=== PATIENT | female | born 2000 | race Caucasian/White ===

== ENCOUNTER 2022-04-19 03:02 | Emergency (ER) | payer OTHER ==
[2022-04-19 03:20] VITALS: BP 103/58; PULSE 80; RESP 18; TEMP 98.3; BMI 24.5
[2022-04-19] MEDS ORDERED: SODIUM CHLORIDE 0.9% 500 ML INFUS.BAG IV ONE (03:42)
[2022-04-19] MEDS ORDERED: METOCLOPRAMIDE HCL INJECTION 10 MG/2 ML VIAL IVPUSH ONE (03:42)
[2022-04-19] MEDS ORDERED: ACETAMINOPHEN 1000 MG/100 ML BAG IVPB ONE (03:42)
[2022-04-19] MEDS ORDERED: KETOROLAC TROMETHAMINE 15 MG/ML VIAL IVPUSH ONE (03:42)
[2022-04-19] MEDS ORDERED: KETOROLAC TROMETHAMINE 15 MG/ML VIAL ONE (03:55)
[2022-04-19] MEDS ORDERED: ACETAMINOPHEN INJECTION 100 ML IVPB ONE (03:55)
[2022-04-19] MEDS ORDERED: METOCLOPRAMIDE HCL INJECTION 10 MG/2 ML VIAL ONE (03:55)
[2022-04-19 03:59] LABS: BASO % 0.8 % (0-2.0); EOS % 1.9 % (0-4.5); HEMATOCRIT 38.9 % (32.4-45.2); HEMOGLOBIN 12.8 GM/dL (10.7-15.3); LYMPH % 29.4 % (8-40); MEAN CELL VOLUME 87.9 fl (80-96); MEAN PLT VOLUME 7.6 fl (7.5-11.1); MONO % 7.8 % (3.8-10.2); NEUT % 60.1 % (42.8-82.8); PLATELET COUNT 346 10^3/uL (134-434); RBC 4.43 M/mm3 (3.60-5.2); RDW 14.3 % (11.6-15.6); WHITE BLOOD COUNT 9.9 K/mm3 (4.0-10.0)
[2022-04-19 04:25] LABS: CHLORIDE 102 mmol/L (98-107); SODIUM 124 mmol/L (136-145)
[2022-04-19 04:27] LABS: CALCIUM 8.3 mg/dL (8.5-10.1); GLUCOSE,RANDOM 94 mg/dL (74-106)
[2022-04-19 04:28] LABS: ALBUMIN 3.2 g/dl (3.4-5.0); CO2 24 mmol/L (21-32)
[2022-04-19 04:31] LABS: CREATININE 0.8 mg/dL (0.55-1.3)
[2022-04-19 04:32] LABS: TOT PROT 8.7 g/dl (6.4-8.2)
[2022-04-19 04:33] LABS: ALK PHOS 59 U/L (45-117)
[2022-04-19 04:47] LABS: SGOT/AST 128 U/L (15-37)
[2022-04-19 05:54] LABS: CALCIUM 8.2 mg/dL (8.5-10.1)
[2022-04-19 05:55] LABS: BLOOD UREA NITROGEN 10.6 mg/dL (7-18)
[2022-04-19 05:58] LABS: CREATININE 0.7 mg/dL (0.55-1.3)
[2022-04-19 06:06] LABS: ANION GAP -2 MMOL/L (8-16)
[2022-04-19 06:35] LABS: EPI CELLS >36 /uL (0-25.1); HYALINE CASTS 1 /uL (0-3.1); PH,URINE 7.5 (5.0-8.0); URINE APPEARANCE CLEAR; URINE BACTERIA 1404 /uL (0-1359); URINE BILIRUBIN NEGATIVE (NEGATIVE); URINE COLOR YELLOW; URINE GLUCOSE (UA) NEGATIVE (NEGATIVE); URINE KETONE 1+ (NEGATIVE); URINE LEUK ESTERASE 2+ (NEGATIVE); URINE NITRITE NEGATIVE (NEGATIVE); URINE PROTEIN NEGATIVE (NEGATIVE); URINE RBC 12 /uL (0-23.9); URINE UROBILINOGEN 0.2 mg/dL (0.2-1.0); URINE WBC 170 /uL (0-25.8)
== END 2022-04-19 06:55 | disposition home or self-care (01) ==
LOC: JER 03:02
PROC: 3E033GC Introduction of Other Therapeutic Substance into Peripheral Vein, Percutaneous Approach (ICD-10-PCS; principal; 2022-04-19)
DX: R51.9 Headache, unspecified (principal)
CPT/HCPCS: 36415; 70450-TC; 80048; 80053; 81003; 84702; 85025; 99285-25